=== PATIENT | female | born 1965 | race American Indian/Alaskan Native ===

== ENCOUNTER 2017-08-03 12:30 | Inpatient (IN) | payer MEDICARE ==
--- NOTE | 2017-08-03 13:51 | Emergency Department Report ---
aMrla Doc - Documentation Documentation: I received call from Dr. Dean the fellow working with Dr. Field bariatric surgeon. Patient had a recent cholecystectomy with drain placement. There is concern for possible fluid leak. Patient was sent to the ER to get a HIDA scan. Although HIDA scan is available at this time patient did have Powerade and tramadol today and therefore cannot receive the HIDA scan because she needs to be nothing by mouth including pain medications. I rediscussed this with Dr. Dean. She requests a CT abdomen and pelvis with IV and by mouth contrast and to give her a call back regarding the results. CBC, BMP, LFTs, amylase, and lipase orders place as per her request. Patient will be seen and further evaluated by another ER physician.
[2017-08-03 14:00] LABS: Basophils % (Auto) 0.4 % (0.0-1.8); Eosinophils # (Auto) 0.2 K/mm3 (0.0-0.4); Hematocrit 35.4 % (30.3-42.9); Hemoglobin 10.9 gm/dl (10.1-14.3); Lymphocytes # (Auto) 1.4 K/mm3 (1.2-5.4); Lymphocytes % (Auto) 18.6 % (13.4-35.0); Mean Corpuscular HGB Conc 31 % (30-34); Mean Corpuscular Volume 77 fl (79-97); Monocytes # (Auto) 0.9 K/mm3 (0.0-0.8); Monocytes % (Auto) 12.1 % (0.0-7.3); Platelet Count 268 K/mm3 (140-440); Red Blood Count 4.57 M/mm3 (3.65-5.03); Red Cell Distribution Width 15.5 % (13.2-15.2)
[2017-08-03 14:01] LABS: Mean Corpuscular Hemoglobin 24 pg (28-32)
[2017-08-03 14:29] LABS: Alanine Aminotransferase 12 units/L (7-56); Albumin 3.2 g/dL (3.9-5); BUN/Creatinine Ratio 8; Bilirubin,Direct 0.2 mg/dL (0-0.2); Blood Urea Nitrogen 5 mg/dL (7-17); Calcium 8.4 mg/dL (8.4-10.2); Hemolysis Index 3
--- NOTE | 2017-08-03 15:19 | Emergency Department Report ---
ED Abdominal Pain HPI - General Chief Complaint: Abdominal Pain Stated Complaint: ABD PAIN Time Seen by Provider: 08/03/17 14:55 Source: patient Mode of arrival: Ambulatory Limitations: No Limitations - History of Present Illness Initial Comments: On 07/26/17, patient had a cholecystectomy with a PAIGE drain. She started having worsening abdominal pain over the past 3 days. Associated with nausea. Patient was sent in from her surgeon's office due to concerns for a biliary leak. Afebrile. No vomiting. Drainage from the PAIGE bulb has progressively cleared since the surgery, but the output has increased. - Related Data Home Medications Medication Instructions Recorded Confirmed Last Taken Pantoprazole [Protonix] 40 mg PO BID 07/20/17 07/26/17 07/25/17 21:00 Ondansetron [Zofran TAB] 8 mg PO Q8HR PRN 07/26/17 07/26/17 07/25/17 21:00 Allergies Allergy/AdvReac Type Severity Reaction Status Date / Time iodine Allergy Anaphylaxis Verified 07/20/17 14:48 shellfish derived Allergy Anaphylaxis Verified 07/20/17 14:48 ED Review of Systems ROS: Stated complaint: ABD PAIN Other details as noted in HPI Comment: All other systems reviewed and negative Gastrointestinal: abdominal pain, nausea ED Past Medical Hx - Past Medical History Previous Medical History?: Yes Hx Hypertension: No Hx Heart Attack/AMI: No Hx Congestive Heart Failure: No Hx Diabetes: No Hx GERD: Yes Hx Seizures: No Hx Asthma: Yes Hx COPD: No Hx HIV: No - Surgical History Past Surgical History?: No - Social History Smoking Status: Never Smoker Substance Use Type: Prescribed - Medications Home Medications: Home Medications Medication Instructions Recorded Confirmed Last Taken Type Pantoprazole [Protonix] 40 mg PO BID 07/20/17 07/26/17 07/25/17 21:00 History Ondansetron [Zofran TAB] 8 mg PO Q8HR PRN 07/26/17 07/26/17 07/25/17 21:00 History ED Physical Exam - General Limitations: No Limitations General appearance: alert, in no apparent distress - Head Head exam: Present: atraumatic, normocephalic - Eye Eye exam: Present: normal appearance - ENT ENT exam: Present: mucous membranes moist - Neck Neck exam: Present: normal inspection - Respiratory Respiratory exam: Present: normal lung sounds bilaterally. Absent: respiratory distress - Cardiovascular Cardiovascular Exam: Present: regular rate, normal rhythm. Absent: systolic murmur, diastolic murmur, rubs, gallop - GI/Abdominal GI/Abdominal exam: Present: soft, tenderness (RUQ, RLQ pain. PAIGE bulb with serous drainage) - Extremities Exam Extremities exam: Present: normal inspection - Back Exam Back exam: Present: normal inspection - Neurological Exam Neurological exam: Present: alert, oriented X3 - Psychiatric Psychiatric exam: Present: normal affect, normal mood - Skin Skin exam: Present: warm, dry, intact, normal color. Absent: rash ED Course Vital Signs 08/03/17 08/03/17 08/03/17 12:51 15:52 17:30 Temperature 98.4 F 98.1 F Pulse Rate 98 H 70 72 Respiratory 16 18 16 Rate Blood Pressure 136/87 Blood Pressure 112/63 116/74 [Right] O2 Sat by Pulse 98 100 100 Oximetry ED Medical Decision Making - Lab Data Result diagrams: 08/03/17 13:50 08/03/17 13:50 - Medical Decision Making 51-year-old female with recent cholecystectomy and a presents with worsening right sided abdominal pain. Labwork unremarkable. CT abdomen and pelvis shows fluid in the gallbladder fossa. Discussed with Dr. Dean, who is concerned for biliary leak. The patient will be given Zosyn and admitted for further management. Critical care attestation.: If time is entered above; I have spent that time in minutes in the direct care of this critically ill patient, excluding procedure time. ED Disposition Clinical Impression: Bile leak Disposition: OP ADMIT IP TO THIS HOSP Is pt being admited?: Yes Does the pt Need Aspirin: No Condition: Stable
[2017-08-03] MEDS ORDERED: PERCOCET 5/325 PO ONE (16:07)
--- NOTE | 2017-08-03 16:37 | Cat Scan Report ---
FINAL REPORT PROCEDURE: CT ABDOMEN PELVIS WO CON TECHNIQUE: Computerized axial tomography of the abdomen and pelvis was performed without intravenous contrast. This study is performed without intravascular contrast material and its sensitivity for abdominal and pelvic pathology, including neoplasms, inflammation, abscess, free fluid, thrombosis, arterial dissection and infarction, is reduced compared with a contrast enhanced study. HISTORY: s/p jeimy, ? fluid leak COMPARISON: No prior studies are available for comparison. FINDINGS: There is minimal atelectasis identified in both lower lungs. The heart size is normal. The liver size is normal. There is mild dilatation of the central biliary ductal system the common bile duct in the pancreatic duct. No stones are identified. The gallbladder is absent. There is moderate fluid identified in the gallbladder fossa region. One small focus of air identified in the gallbladder fossa region is noted. This is most likely sequelae from previous surgery. Bile leak within the gallbladder fossa region is possible. Further evaluation with hepatic biliary scan may be appropriate. There is a surgical drain identified entering from the lateral right mid abdomen extending down to the pelvis. The spleen, adrenal glands and both kidneys have a normal size. There is a 3 centimeter cyst off the anterior left renal cortex. No hydronephrosis is seen. There has been previous surgery in the region of the upper stomach. A moderate-sized hiatal hernia is identified. There are few loops of slightly dilated gas and fluid filled small bowel. Oral contrast was administered for the examination and does reach the colon. No obstruction is seen. Mild fecal debris within the colon is noted. There is minimal fluid in the lower pelvis. The partially filled urinary bladder is normal. No pelvic masses are identified. Mild degenerative changes of the thoracic and lumbar spine. IMPRESSION: There has been cholecystectomy. There is mild dilatation of the central biliary ductal system, the common bile duct and the pancreatic duct. No stones are identified. Moderate fluid identified in the gallbladder fossa region is noted. A bile leak in the region is not excluded. Further imaging evaluation may be required. There is a surgical drain identified entering from the lateral right mid abdomen extending into the pelvis. There is minimal fluid in the lower pelvis. There is no evidence of intestinal or urinary tract obstruction. .
[2017-08-03] MEDS ORDERED: DILAUDID IV ONE (17:11)
[2017-08-03] MEDS ORDERED: SODIUM CHLORIDE FLUSH SYRINGE 10 ML IV PRN (17:36)
[2017-08-03] MEDS ORDERED: ZOFRAN IV PRN (17:36)
[2017-08-03] MEDS ORDERED: ALUM-MAG HYDROX-SIMETH 200-200-20MG/5ML PO PRN (17:36)
[2017-08-03] MEDS ORDERED: TYLENOL PO PRN (17:36)
[2017-08-03] MEDS ORDERED: MYLICON PO PRN (17:42)
[2017-08-03] MEDS ORDERED: NORCO PO PRN (17:44)
[2017-08-03] MEDS ORDERED: BENADRYL IV PRN (17:53)
[2017-08-03] MEDS: CARAFATE PO SCH ×2 (18:15→23:47)
[2017-08-03] MEDS: D5W/0.45% NACL/KCL 20 MEQ 20 MEQ/1,000 ML BAG IV SCH (20:33)
[2017-08-03] MEDS: ZOSYN/NS 4.5GM/100ML 4.5 GM/100 ML VIAL IV SCH (23:47)
[2017-08-03] MEDS: SODIUM CHLORIDE FLUSH SYRINGE 10 ML IV SCH (23:48)
[2017-08-04] MEDS: ZOSYN/NS 4.5GM/100ML 4.5 GM/100 ML VIAL IV SCH ×7 (06:03→23:41)
[2017-08-04] MEDS: D5W/0.45% NACL/KCL 20 MEQ 20 MEQ/1,000 ML BAG IV SCH (06:04)
[2017-08-04] MEDS: CARAFATE PO SCH ×3 (06:10→18:00)
[2017-08-04 06:41] LABS: Basophils % (Auto) 0.5 % (0.0-1.8); Eosinophils # (Auto) 0.2 K/mm3 (0.0-0.4); Eosinophils % (Auto) 3.6 % (0.0-4.3); Hematocrit 32.1 % (30.3-42.9); Hemoglobin 10.3 gm/dl (10.1-14.3); Lymphocytes % (Auto) 16.4 % (13.4-35.0); Mean Corpuscular HGB Conc 32 % (30-34); Mean Corpuscular Volume 76 fl (79-97); Monocytes # (Auto) 0.9 K/mm3 (0.0-0.8); Monocytes % (Auto) 14.6 % (0.0-7.3); Platelet Count 236 K/mm3 (140-440); Red Blood Count 4.23 M/mm3 (3.65-5.03); Red Cell Distribution Width 15.6 % (13.2-15.2)
[2017-08-04 06:42] LABS: Mean Corpuscular Hemoglobin 24 pg (28-32)
[2017-08-04 06:47] LABS: INR 0.98 (0.87-1.13)
[2017-08-04 06:58] LABS: Alanine Aminotransferase 9 units/L (7-56); Albumin 2.8 g/dL (3.9-5); BUN/Creatinine Ratio 7; Blood Urea Nitrogen 4 mg/dL (7-17); Hemolysis Index 0
[2017-08-04 07:02] LABS: Bilirubin,Direct < 0.2 mg/dL (0-0.2)
[2017-08-04] MEDS: LOVENOX SUB-Q SCH (10:10)
[2017-08-04] MEDS: SODIUM CHLORIDE FLUSH SYRINGE 10 ML IV SCH (10:30)
--- NOTE | 2017-08-04 10:59 | History and Physical Report ---
History of Present Illness Date of admission: 08/03/17 17:36 History of present illness: 51 y.o. F s/p laparoscopic intraoperative cholangiogram, presumed lap choley, intraop egd. She presented to the office for her post operative check. A SERG drain was left in place at time of surgery. The serg since discharge has been draining 75cc of yellow fluid every 4hrs. She has minimal ruq pain and denies nausea. She has been tolerating regular diet at home. She continued to take the PPI BID and carafate as prev. prescribed for her marginal ulcer. After evaluating her in the office on 06/05/17, she was sent to the ER for further eval due the elevated drainage. Past History Past Medical History: other (Pancreatic mass biopsy 06/24/17 neg for malig . EUS: pancreatic duct dilated 4mm, mass pancreatic head. US: 05/19/17: impression: GB stones. CBD dilation. marginal ulcer) Past Surgical History: cholecystectomy, Other (pancreatic head mass biopsy 2017, lap gastric bypass, lap gastric bypass revision. EGDs ) Medications and Allergies Allergies Allergy/AdvReac Type Severity Reaction Status Date / Time iodine Allergy Anaphylaxis Verified 07/20/17 14:48 shellfish derived Allergy Anaphylaxis Verified 07/20/17 14:48 Home Medications Medication Instructions Recorded Confirmed Last Taken Type Pantoprazole [Protonix] 40 mg PO BID 07/20/17 07/26/17 07/25/17 21:00 History Ondansetron [Zofran TAB] 8 mg PO Q8HR PRN 07/26/17 07/26/17 07/25/17 21:00 History Active Meds: Active Medications Acetaminophen (Tylenol) 650 mg PO Q4H PRN PRN Reason: Pain MILD(1-3)/Fever >100.5/ARCE Al Hydrox/Mg Hydrox/Simethicone (Alum-Mag Hydrox-Simeth [phone]/5ml) 30 ml PO Q4H PRN PRN Reason: Indigestion Bisacodyl (Dulcolax) 5 mg PO QDAY PRN PRN Reason: Constipation Diphenhydramine HCl (Benadryl) 25 mg IV Q8H PRN PRN Reason: Itching Docusate Sodium (Colace) 100 mg PO BID ECHO Enoxaparin Sodium (Lovenox) 40 mg SUB-Q DAILY ECHO Piperacillin Sod/Tazobactam Sod (Zosyn/Ns 4.5gm/100ml) 4.5 gm in 100 mls @ 200 mls/hr IV ONCE ECHO Last Infusion: 08/04/17 07:23 Dose: Infused Potassium Chloride/Dextrose/Sod Cl (D5w/0.45% Nacl/Kcl 20 Meq) 20 meq in 1,000 mls @ 125 mls/hr IV DIRECT ECHO Last Admin: 08/04/17 06:04 Dose: 125 mls/hr Piperacillin Sod/Tazobactam Sod (Zosyn/Ns 4.5gm/100ml) 4.5 gm in 100 mls @ 200 mls/hr IV Q6HR ECHO; Protocol Last Infusion: 08/04/17 07:24 Dose: Infused Potassium Chloride (Kcl 10meq/100ml) 10 meq in 100 mls @ 100 mls/hr IV Q1H [facility] Stop: 08/04/17 12:59 Magnesium Hydroxide (Milk Of Magnesia) 30 ml PO Q4H PRN PRN Reason: Constipation Ondansetron HCl (Zofran) 4 mg IV Q6H PRN PRN Reason: Nausea And Vomiting Pantoprazole Sodium (Protonix) 40 mg IV DAILY [facility] Simethicone (Mylicon) 80 mg PO Q8HR PRN PRN Reason: Gas pain Sodium Chloride (Sodium Chloride Flush Syringe 10 Ml) 10 ml IV BID [facility] Last Admin: 08/03/17 23:48 Dose: 10 ml Sodium Chloride (Sodium Chloride Flush Syringe 10 Ml) 10 ml IV PRN PRN PRN Reason: LINE FLUSH Last Admin: 08/03/17 20:40 Dose: 10 ml Sucralfate (Carafate) 1 gm PO Q6H ECHO Last Admin: 08/04/17 06:10 Dose: Not Given Review of Systems All systems: negative - Constitutional no fever, no chills, no sweats, no fatigue, no weakness, no malaise, no lethargy - Cardiovascular no chest pain, no orthopnea, no palpitations, no rapid/irregular heart beat, no edema, no syncope - Respiratory no cough, no cough with sputum, no excessive sputum, no hemoptysis - Gastrointestinal abdominal pain, other (per hpi) - Integumentary no rash, no pruritis, no redness, no sores - Neurological no head injury, no transient paralysis, no paralysis, no weakness - Psychiatric no anxiety, no memory loss, no change in sleep habits - Endocrine no cold intolerance, no heat intolerance, no polyphagia - Hematologic/Lymphatic no easy bruising, no easy bleeding Exam Vital Signs Temp Pulse Resp BP Pulse Ox 98.4 F 98 H 16 136/87 98 08/03/17 12:51 08/03/17 12:51 08/03/17 12:51 08/03/17 12:51 08/03/17 12:51 - General physical appearance Positive: well developed, well nourished, no distress - Eyes Positive: PERRL - Respiratory Positive: normal expansion, normal respiratory effort - Cardiovascular Rhythm: regular - Extremities Extremities: no ischemia - Abdomen Abdomen: Present: other (soft, tender to deep palp rlq. SERG bulb in place : serous fluid. incision sites cdi. dressings removed. no rebound no guarding ) - Integumentary no rash, no growths - Neurologic Neurologic: alert and oriented to time, place and person, motor strength and sensation are grossly intact Results - Labs 08/04/17 04:55 08/04/17 04:55 Abnormal lab results 08/03/17 08/03/17 08/04/17 Range/Units 13:50 13:50 04:55 MCV 77 L 76 L (79-97) fl MCH 24 L 24 L (28-32) pg RDW 15.5 H 15.6 H (13.2-15.2) % Cochran % (Auto) 12.1 H 14.6 H (0.0-7.3) % Lymph # 1.0 L (1.2-5.4) K/mm3 Cochran # 0.9 H 0.9 H (0.0-0.8) K/mm3 APTT (24.2-36.6) Sec. Sodium 136 L (137-145) mmol/L Potassium 3.5 L (3.6-5.0) mmol/L Chloride 95.5 L (98-107) mmol/L BUN 5 L (7-17) mg/dL Creatinine 0.6 L (0.7-1.2) mg/dL Glucose 116 H (65-100) mg/dL Calcium (8.4-10.2) mg/dL Total Protein (6.3-8.2) g/dL Albumin 3.2 L (3.9-5) g/dL 08/04/17 08/04/17 Range/Units 04:55 04:55 MCV (79-97) fl MCH (28-32) pg RDW (13.2-15.2) % Cochran % (Auto) (0.0-7.3) % Lymph # (1.2-5.4) K/mm3 Cochran # (0.0-0.8) K/mm3 APTT 46.0 H (24.2-36.6) Sec. Sodium (137-145) mmol/L Potassium 3.4 L (3.6-5.0) mmol/L Chloride 96.8 L (98-107) mmol/L BUN 4 L (7-17) mg/dL Creatinine 0.6 L (0.7-1.2) mg/dL Glucose 110 H (65-100) mg/dL Calcium 8.0 L (8.4-10.2) mg/dL Total Protein 5.9 L (6.3-8.2) g/dL Albumin 2.8 L (3.9-5) g/dL Diabetes panel 08/03/17 08/04/17 Range/Units 13:50 04:55 Sodium 136 L 137 (137-145) mmol/L Potassium 3.5 L 3.4 L (3.6-5.0) mmol/L Chloride 95.5 L 96.8 L (98-107) mmol/L Carbon Dioxide 28 29 (22-30) mmol/L BUN 5 L 4 L (7-17) mg/dL Creatinine 0.6 L 0.6 L (0.7-1.2) mg/dL Glucose 116 H 110 H (65-100) mg/dL Calcium 8.4 8.0 L (8.4-10.2) mg/dL AST 13 8 (5-40) units/L ALT 12 9 (7-56) units/L Alkaline Phosphatase 65 54 (35-129) units/L Total Protein 7.0 5.9 L (6.3-8.2) g/dL Albumin 3.2 L 2.8 L (3.9-5) g/dL Calcium panel 08/03/17 08/04/17 Range/Units 13:50 04:55 Calcium 8.4 8.0 L (8.4-10.2) mg/dL Albumin 3.2 L 2.8 L (3.9-5) g/dL Pituitary panel 08/03/17 08/04/17 Range/Units 13:50 04:55 Sodium 136 L 137 (137-145) mmol/L Potassium 3.5 L 3.4 L (3.6-5.0) mmol/L Chloride 95.5 L 96.8 L (98-107) mmol/L Carbon Dioxide 28 29 (22-30) mmol/L BUN 5 L 4 L (7-17) mg/dL Creatinine 0.6 L 0.6 L (0.7-1.2) mg/dL Glucose 116 H 110 H (65-100) mg/dL Calcium 8.4 8.0 L (8.4-10.2) mg/dL Adrenal panel 08/03/17 08/04/17 Range/Units 13:50 04:55 Sodium 136 L 137 (137-145) mmol/L Potassium 3.5 L 3.4 L (3.6-5.0) mmol/L Chloride 95.5 L 96.8 L (98-107) mmol/L Carbon Dioxide 28 29 (22-30) mmol/L BUN 5 L 4 L (7-17) mg/dL Creatinine 0.6 L 0.6 L (0.7-1.2) mg/dL Glucose 116 H 110 H (65-100) mg/dL Calcium 8.4 8.0 L (8.4-10.2) mg/dL Total Bilirubin 0.70 0.60 (0.1-1.2) mg/dL AST 13 8 (5-40) units/L ALT 12 9 (7-56) units/L Alkaline Phosphatase 65 54 (35-129) units/L Total Protein 7.0 5.9 L (6.3-8.2) g/dL Albumin 3.2 L 2.8 L (3.9-5) g/dL Assessment and Plan 51 y.o. F with elevated SERG output, sp recent laparoscopic cholangiogram: Concern for possible leak as the SERG output remains elevated. CT with PO contrast in the ER showed fluid collected in the GB fossa which is concerning for a possible bile leak. The patient comfortable and without leukocytosis. She was admitted in order to r/o a leak and will have further intervention if needed. LFTs WNL as well. monitor drain output. nutrition: npo until after hida, then placed on diet. npo after midlnight in case further intervention needs to be conducted. pain control: lortab hx of marginal ulcer: continue PPI and carafate GI and dvt proph HIDA has been completed however images cannot be downloaded to system at this time. Per tech, images should be available in the am. Spoke with Jessica the charge nurse to relay this information to the patient as she was waiting to hear the results.
[2017-08-04] MEDS: PROTONIX IV SCH (11:29)
[2017-08-04] MEDS ORDERED: DULCOLAX PO PRN (12:00)
[2017-08-04] MEDS ORDERED: MILK OF MAGNESIA PO PRN (12:00)
[2017-08-04] MEDS ORDERED: KCL 10MEQ/100ML 10 MEQ/100 ML BAG IV SCH (12:30)
[2017-08-04] MEDS: COLACE PO SCH ×2 (13:33→23:41)
[2017-08-04] MEDS ORDERED: NORCO PO PRN (17:33)
[2017-08-05] MEDS: CARAFATE PO SCH ×2 (02:48→06:33)
[2017-08-05 05:24] LABS: Basophils % (Auto) 0.5 % (0.0-1.8); Eosinophils # (Auto) 0.2 K/mm3 (0.0-0.4); Eosinophils % (Auto) 3.5 % (0.0-4.3); Hematocrit 33.7 % (30.3-42.9); Hemoglobin 10.4 gm/dl (10.1-14.3); Lymphocytes # (Auto) 1.7 K/mm3 (1.2-5.4); Lymphocytes % (Auto) 27.3 % (13.4-35.0); Mean Corpuscular HGB Conc 31 % (30-34); Mean Corpuscular Volume 77 fl (79-97); Monocytes # (Auto) 0.8 K/mm3 (0.0-0.8); Monocytes % (Auto) 12.4 % (0.0-7.3); Platelet Count 292 K/mm3 (140-440); Red Cell Distribution Width 15.4 % (13.2-15.2)
[2017-08-05 05:42] LABS: Mean Corpuscular Hemoglobin 24 pg (28-32)
[2017-08-05 05:43] LABS: BUN/Creatinine Ratio 3; Blood Urea Nitrogen 2 mg/dL (7-17); Calcium 8.1 mg/dL (8.4-10.2); Hemolysis Index 0
[2017-08-05] MEDS: ZOSYN/NS 4.5GM/100ML 4.5 GM/100 ML VIAL IV SCH (06:37)
[2017-08-05 08:53] VITALS: BP 106/64
--- NOTE | 2017-08-05 09:52 | Nuclear Medicine Report ---
HIDA WITHOUT CCK INDICATION: Status post cholecystectomy on 07/26/2017. Evaluate for bile leak. COMPARISON: 08/03/2017 CT and a single 07/26/2017 intraoperative cholangiogram image. FINDINGS: Dynamic right upper quadrant imaging performed in the anterior projection over 60 minutes following uneventful intravenous administration of 5 mCi of Technetium 99m Choletec. Fairly uniform hepatic radiotracer uptake noted promptly with grossly preserved contours and normal washout. Bile duct activity noted as early as 15 minutes with progressive opacification of the small bowel up to 60 minutes. Somewhat bulbous radiotracer activity in the region of the common bile duct and the duodenum may represent tortuous/overlapping bowel. Choledochocele though not entirely excluded. Such appearance also noted on 90 and 120 minute acquisitions. No definite extraluminal radiotracer activity or dependently along the paracolic gutter convincingly identified, though CAROL or decubitus acquisition not available. CONCLUSION: No definite evidence of bile leak with findings, as described above. Please also correlate clinically. Please note that this exam is now available to me for interpretation. Thank you for the opportunity to participate in this patient's care.
--- NOTE | 2017-08-05 12:56 | Progress Note ---
Objective Vital Signs - 12hr 08/05/17 08/05/17 04:30 07:43 Temperature 98.5 F 98.3 F Pulse Rate 69 72 Respiratory 19 18 Rate Blood Pressure 101/58 106/64 O2 Sat by Pulse 100 100 Oximetry - Labs 08/05/17 04:46 08/05/17 04:46 Diabetes panel 08/05/17 Range/Units 04:46 Sodium 141 (137-145) mmol/L Potassium 3.5 L (3.6-5.0) mmol/L Chloride 102.3 (98-107) mmol/L Carbon Dioxide 26 (22-30) mmol/L BUN 2 L (7-17) mg/dL Creatinine 0.7 (0.7-1.2) mg/dL Glucose 90 (65-100) mg/dL Calcium 8.1 L (8.4-10.2) mg/dL Calcium panel 08/05/17 Range/Units 04:46 Calcium 8.1 L (8.4-10.2) mg/dL Pituitary panel 08/05/17 Range/Units 04:46 Sodium 141 (137-145) mmol/L Potassium 3.5 L (3.6-5.0) mmol/L Chloride 102.3 (98-107) mmol/L Carbon Dioxide 26 (22-30) mmol/L BUN 2 L (7-17) mg/dL Creatinine 0.7 (0.7-1.2) mg/dL Glucose 90 (65-100) mg/dL Calcium 8.1 L (8.4-10.2) mg/dL Adrenal panel 08/05/17 Range/Units 04:46 Sodium 141 (137-145) mmol/L Potassium 3.5 L (3.6-5.0) mmol/L Chloride 102.3 (98-107) mmol/L Carbon Dioxide 26 (22-30) mmol/L BUN 2 L (7-17) mg/dL Creatinine 0.7 (0.7-1.2) mg/dL Glucose 90 (65-100) mg/dL Calcium 8.1 L (8.4-10.2) mg/dL
[2017-08-05] MEDS: SODIUM CHLORIDE FLUSH SYRINGE 10 ML IV SCH (13:01)
[2017-08-05] MEDS: LOVENOX SUB-Q SCH (13:01)
[2017-08-05] MEDS: COLACE PO SCH (13:01)
[2017-08-05] MEDS: PROTONIX IV SCH (13:01)
--- NOTE | 2017-08-05 13:01 | Discharge Summary ---
Providers - Providers Date of Admission: 08/03/17 17:36 Attending physician: Karolyn Dean DO Primary care physician: SENIOR MAINTENANCE TECHNICIAN Hospitalization Condition: Stable Pertinent studies: HIDA: neg for bile leak Hospital course: 51 y.o F presented to the ER with increased output from a serg that was placed during lap biliary surgery. HIDA could not be completed in the ER because she ate prior. CT showed fluid in the gb fossa. She was admitted for concern for a bile leak. HIDA the following day was peformed but could not be read due to computer issues. Today the HIDA was read and showed no bile leak. She was started on diet and tolerated. The serg output was 75 cc- 100cc /24hrs serous. The SERG was removed since no leak was identified. fluid could be peritoneal fluid that was reasborbing. A CD was made her the images for her to take to [facility] to her GI doctor. She understands she must follow up with her gi doctor since her images reviewed dilated bile duct. Disposition: DC-01 TO HOME OR SELFCARE Core Measure Documentation - Palliative Care Palliative Care/ Comfort Measures: Not Applicable - Core Measures Any of the following diagnoses?: none Exam - Physical Exam Narrative exam: Gen: A+Ox 3 cardio: RRR abd: soft, SERG serous. SERG removed and 4x4 placed with tap. non tender. no rebound no guarding - Constitutional Vitals: Temp Pulse Resp BP Pulse Ox 98.3 F 72 18 106/64 100 08/05/17 07:43 08/05/17 07:43 08/05/17 07:43 08/05/17 07:43 08/05/17 07:43 Plan Wound: keep clean and dry Additional Instructions: Follow up with GI doctor at [facility] to review the images on the CD. Must follow up at [facility]. Follow up with Dr. Field office in one month. Keep dressings on for a couple days then remove and replace. Follow up with: PRIMARY CAREMD [Primary Care Provider] - 3-5 Days
== END 2017-08-05 13:30 | disposition home or self-care (01) | DRG 392 ==
LOC: ED 12:30 → 3B-SURG 17:36
PROVIDERS: ADMIT Surgery; ATTEND Surgery
DX: R10.9 Unspecified abdominal pain (principal); K21.9 Gastro-esophageal reflux disease without esophagitis; Z91.041 Radiographic dye allergy status; Z91.013 Allergy to seafood; Z90.49 Acquired absence of other specified parts of digestive tract; Z79.899 Other long term (current) drug therapy; Z98.84 Bariatric surgery status
CPT/HCPCS: 36415; 74176; 78226; 80048; 80074; 82150; 83690; 83735; 85025; 85610; 85730; 96374; A9537; C9113; J1170; J1200; J2543; J3480